=== PATIENT | female | born 1945 | race Caucasian/White ===

== ENCOUNTER 2018-02-25 11:44 | Emergency (ER) | payer MEDICARE ==
[~2018-02-25] VITALS: Ht 165.1 cm; Wt 55.0 kg
[2018-02-25 12:24] VITALS: BP 125/59; PULSE 65; RESP 15; TEMP 97
[2018-02-25 12:42] LABS: AUTOMATED NEUTROPHIL # 6.9 TH/MM3 (1.8-7.7); BASOPHIL % 0.2 % (0.0-2.0); EOSINOPHIL % 0.1 % (0.0-4.0); HEMATOCRIT 34.6 % (35.0-46.0); HEMOGLOBIN 11.8 GM/DL (11.6-15.3); LYMPH % 6.7 % (9.0-44.0); LYMPHOCYTE # 0.5 TH/MM3 (1.0-4.8); MEAN CELL VOLUME 89.8 FL (80.0-100.0); MEAN CORPUSCULAR HEMOGLOBIN 30.5 PG (27.0-34.0); MEAN CORPUSCULAR HGB CONC 33.9 % (32.0-36.0); MEAN PLATELET VOLUME 8.2 FL (7.0-11.0); MONO % 1.5 % (0.0-8.0); MONOCYTE # 0.1 TH/MM3 (0-0.9); NEUT % 91.5 % (16.0-70.0); PLATELET COUNT 333 TH/MM3 (150-450); RED BLOOD COUNT 3.86 MIL/MM3 (4.00-5.30); WHITE BLOOD COUNT 7.5 TH/MM3 (4.0-11.0)
[2018-02-25] MEDS ORDERED: BIOTCAP PO (12:44)
[2018-02-25] MEDS ORDERED: ALEN1TAB48 PO (12:44)
[2018-02-25] MEDS ORDERED: CYAN1TAB24 (12:44)
[2018-02-25] MEDS ORDERED: VERA120T3 PO (12:44)
[2018-02-25] MEDS ORDERED: LORA0.5T PO (12:44)
[2018-02-25] MEDS ORDERED: CENTCHW4 CHEW (12:44)
[2018-02-25] MEDS ORDERED: FISHCAP4 PO (12:44)
[2018-02-25] MEDS ORDERED: ASPI81CH6 CHEW (12:44)
[2018-02-25] MEDS ORDERED: C (12:44)
[2018-02-25] MEDS ORDERED: MAG-TAB PO (12:44)
[2018-02-25] MEDS ORDERED: VITACAP7 PO (12:44)
[2018-02-25] MEDS ORDERED: SYSTSOL15 EACH EYE (12:44)
[2018-02-25] MEDS ORDERED: D 101000 (12:44)
[2018-02-25 12:56] LABS: ALBUMIN 3.6 GM/DL (3.4-5.0); AST (GOT) 20 U/L (15-37); BICARBONATE 23.7 MEQ/L (21.0-32.0); BLOOD UREA NITROGEN 6 MG/DL (7-18); CALCIUM 7.8 MG/DL (8.5-10.1); CHLORIDE 103 MEQ/L (98-107); CREATININE 0.54 MG/DL (0.50-1.00); GLOMERULAR FILTRATION RATE 111 ML/MIN (>89); GLUCOSE,RANDOM 114 MG/DL (74-106); SODIUM (NA) 136 MEQ/L (136-145)
[2018-02-25 12:57] LABS: ALT (GPT) 23 U/L (10-53)
[2018-02-25 12:59] LABS: ALKALINE PHOSPHATASE 71 U/L (45-117); TOTAL BILIRUBIN ADULT 0.3 MG/DL (0.2-1.0); TOTAL PROTEIN 7.1 GM/DL (6.4-8.2)
--- NOTE | 2018-02-25 13:13 | PD ---
HPI Chief Complaint: GI Complaint Time Seen by Provider: 12:55 Travel History International Travel<30 days: No Contact w/Intl Traveler<30days: No Traveled to known affect area: No History of Present Illness HPI 72-year-old female with PMH of HTN presents to the ED via EMS for evaluation from her endoscopist office. Patient states that she is experienced dizziness and unsteadiness since waking from anesthesia after colonoscopy today. She also had a few bouts of emesis. She states that her symptoms are improving in the ED. She denies headache, dizziness, chest pain, palpitations, shortness of breath, abdominal pain, nausea, vomiting, dysuria. Patient states that she lives alone. She states that she has had a history of problems coming out of anesthesia in the past but did not think to mention this prior to her procedure today. PFSH Past Medical History Atrial Fibrillation: Yes Anxiety: Yes Cancer: Yes (BASAL CELL) Hypertension: Yes Past Surgical History Eye Surgery: Yes (CATARACTS) Hysterectomy: Yes Tonsillectomy: Yes (AND ADENOIDS X2) Social History Alcohol Use: No Tobacco Use: No Substance Use: No Allergies-Medications (Allergen,Severity, Reaction): Coded Allergies: Penicillins (Verified Allergy, Unknown, 02/25/18) prochlorperazine (Verified Allergy, Unknown, 02/25/18) Reported Meds & Prescriptions Reported Meds & Active Scripts Active Reported [C] B12 (Cyanocobalamin) 1,000 Mcg Tab Verapamil (Verapamil HCl) 120 Mg Tab 120 Mg PO DAILY Systane Balance [employer] Opth Drops (Propylene Glycol Opth Drops) 0.6% Soln 1 Drop EACH EYE PRN PRN Lorazepam 0.5 Mg Tab 0.5 Mg PO DAILY PRN Fish Oil + D3 (Fish Oil-Cholecalciferol) 1,200-1,000 Mg-Unit Cap 1 Cap PO DAILY Aspirin Low Dose (Aspirin) 81 Mg Chew 81 Mg CHEW DAILY D 1000 (Cholecalciferol) 1,000 Unit Cap Mag-Delay (Magnesium Chloride) 70 Mg Magnesium Tab 64 Mg PO DAILY Centrum (Multiple Vitamins W/ Minerals) 1 Chew 1 Tab CHEW DAILY Biotin 5 Mg Cap 5,000 Mg PO B Complex (B-Complex Vitamins) 1 Cap 1 Cap PO DAILY Alendronate (Alendronate Sodium) 70 Mg Tab 70 Mg PO Q7D Review of Systems Except as stated in HPI: all other systems reviewed are Neg Physical Exam Narrative GENERAL: Pleasant, alert, oriented white female no acute distress. SKIN: Focused skin assessment warm/dry. HEAD: Atraumatic. Normocephalic. EYES: Pupils equal and round. No scleral icterus. No injection or drainage. ENT: No nasal bleeding or discharge. Mucous membranes pink and moist. NECK: Trachea midline. No JVD. CARDIOVASCULAR: Regular rate and rhythm. No murmur appreciated. RESPIRATORY: No accessory muscle use. Clear to auscultation. Breath sounds equal bilaterally. GASTROINTESTINAL: Abdomen soft, non-tender, nondistended. Hepatic and splenic margins not palpable. Active bowel sounds. MUSCULOSKELETAL: No obvious deformities. No clubbing. No cyanosis. No edema. NEUROLOGICAL: Awake and alert. No obvious cranial nerve deficits. Motor grossly within normal limits. Normal speech. PSYCHIATRIC: Appropriate mood and affect; insight and judgment normal. Data Data Last Documented VS Vital Signs Date Time Temp Pulse Resp B/P (MAP) Pulse Ox O2 Delivery O2 Flow Rate FiO2 02/25/18 16:10 70 16 118/72 (87) 98 02/25/18 12:24 97.0 Orders Orders Complete Blood Count With Diff (02/25/18 11:49) Comprehensive Metabolic Panel (02/25/18 11:49) Urinalysis - C+S If Indicated (02/25/18 11:49) Iv Access Insert/Monitor (02/25/18 11:49) Oxygen Administration (02/25/18 11:49) Oximetry (02/25/18 11:49) Lipase (02/25/18 11:49) Sodium Chlor 0.9% 1000 Ml Inj (Ns 1000 M (02/25/18 13:15) Potassium Chloride (Kcl) (02/25/18 13:15) Calcium Carbonate Chew (Tums Chew) (02/25/18 13:30) Ed Discharge Order (02/25/18 13:58) Labs Laboratory Tests Test 02/25/18 12:10 02/25/18 13:18 White Blood Count 7.5 TH/MM3 Red Blood Count 3.86 MIL/MM3 Hemoglobin 11.8 GM/DL Hematocrit 34.6 % Mean Corpuscular Volume 89.8 FL Mean Corpuscular Hemoglobin 30.5 PG Mean Corpuscular Hemoglobin Concent 33.9 % Red Cell Distribution Width 14.0 % Platelet Count 333 TH/MM3 Mean Platelet Volume 8.2 FL Neutrophils (%) (Auto) 91.5 % Lymphocytes (%) (Auto) 6.7 % Monocytes (%) (Auto) 1.5 % Eosinophils (%) (Auto) 0.1 % Basophils (%) (Auto) 0.2 % Neutrophils # (Auto) 6.9 TH/MM3 Lymphocytes # (Auto) 0.5 TH/MM3 Monocytes # (Auto) 0.1 TH/MM3 Eosinophils # (Auto) 0.0 TH/MM3 Basophils # (Auto) 0.0 TH/MM3 CBC Comment DIFF FINAL Differential Comment Blood Urea Nitrogen 6 MG/DL Creatinine 0.54 MG/DL Random Glucose 114 MG/DL Total Protein 7.1 GM/DL Albumin 3.6 GM/DL Calcium Level 7.8 MG/DL Alkaline Phosphatase 71 U/L Aspartate Amino Transf (AST/SGOT) 20 U/L Alanine Aminotransferase (ALT/SGPT) 23 U/L Total Bilirubin 0.3 MG/DL Sodium Level 136 MEQ/L Potassium Level 3.2 MEQ/L Chloride Level 103 MEQ/L Carbon Dioxide Level 23.7 MEQ/L Anion Gap 9 MEQ/L Estimat Glomerular Filtration Rate 111 ML/MIN Lipase 107 U/L Urine Color LIGHT-YELLOW Urine Turbidity CLEAR Urine pH 7.0 Urine Specific [place] 1.010 Urine Protein NEG mg/dL Urine Glucose (UA) NEG mg/dL Urine Ketones 40 mg/dL Urine Occult Blood NEG Urine Nitrite NEG Urine Bilirubin NEG Urine Urobilinogen LESS THAN 2.0 MG/DL Urine Leukocyte Esterase NEG Urine RBC LESS THAN 1 /hpf Urine WBC 1 /hpf Urine Squamous Epithelial Cells <1 /hpf Urine Hyaline Casts 2 /lpf Urine Mucus FEW /lpf Microscopic Urinalysis Comment CULT NOT INDICATED MDM Medical Decision Making Medical Screen Exam Complete: Yes Emergency Medical Condition: Yes Differential Diagnosis dehydration versus metabolic derangement versus medication reaction versus other Narrative Course 72-year-old female with PMH of HTN presents to the ED via EMS for evaluation from her endoscopist office. Patient states that she is experienced dizziness and unsteadiness since waking from anesthesia after colonoscopy today. She also had a few bouts of emesis. Symptoms are improving in the ED. vitals reviewed. No focal neuro deficits on exam. CBC: No leukocytosis or anemia. CMP: BUN 6, creatinine 0.54. Potassium 3.2. Calcium 7.8. UA: No culture indicated. Patient was able to ambulate to the bathroom, no dizziness reported. She was able to tolerate p.o. replacement of potassium and calcium. She is able to tolerate crackers and amarjit amy. She is able to walk steadily around the emergency room. I spoke with Dr. Bentley. From his standpoint he thinks the patient is safe for discharge. Patient states that she is feeling well. She is instructed to return to normal, gentle activity as tolerated, follow-up with Dr. Bentley, return for worsening symptoms. She indicated understanding of instructions. She is agreeable to the care plan. The patient is stable and discharged home. Diagnosis Primary Impression: Nausea and vomiting after administration of anesthetic agent Referrals: Rocael Bentley MD Primary Care Physician Additional Instructions: Rest, hydrate. Eat a bland diet for the next few days and gradually reintroduce new foods. Follow-up with Dr. Bentley as discussed. Return to the ED for worsening symptoms or any urgent or emergent medical condition. Disposition: 01 DISCHARGE HOME Condition: Stable Anitra Mullen Feb 25, 2018 13:12
[2018-02-25] MEDS ORDERED: SODIUM CHLOR 0.9% 1000 ML INJ 1,000 ML IV ONE (13:15)
[2018-02-25] MEDS ORDERED: POTASSIUM CHLORIDE 20 MEQ CONTROLLED RELEASE TAB PO ONE (13:15)
[2018-02-25] MEDS ORDERED: CALCIUM CARBONATE 500 MG CHEWABLE TAB CHEW ONE (13:30)
[2018-02-25 13:49] LABS: BILIRUBIN, URINE NEG (NEG); BLOOD, URINE NEG (NEG); GLUCOSE,URINE NEG (NEG); HYALINE CAST, URINE 2 /lpf (RARE); KETONE, URINE 40 mg/dL (NEG); MUCUS URINE FEW /lpf (OCC); NITRITE,URINE NEG (NEG); SQUAMOUS EPITHELIAL CELL URINE <1 /hpf (0-5); URINE COLOR LIGHT-YELLOW (YELLW/STRAW); URINE LEUKOCYTE ESTERASE NEG (NEG)
[2018-02-25 16:10] VITALS: BP 118/72
== END 2018-02-25 16:47 | disposition home or self-care (01) ==
LOC: NEDAMB 11:44
DX: R11.2 Nausea with vomiting, unspecified (principal); R42 Dizziness and giddiness; I10 Essential (primary) hypertension
CPT/HCPCS: 80053; 81001; 83690; 85025; 99284; J7030

== ENCOUNTER 2018-03-26 11:32 | Inpatient (IN) ==
[2018-03-26] MEDS ORDERED: Neostigmine Inj 5 MG/5 ML Syringe IV.PUSH ONE (12:00)
[2018-03-26] MEDS ORDERED: Lidocaine PF 1% Inj 5 ML Syringe INFILTRATN ONE (12:00)
[2018-03-26] MEDS ORDERED: Normosol-R pH 7.4 Inj 1,000 ML IV.CONT ONE (12:00)
[2018-03-26] MEDS ORDERED: Glycopyrrolate Inj 1 MG/5 ML Syringe IV.PUSH ONE (12:00)
[2018-03-26] MEDS ORDERED: Chlorhexidine Gluconate 2% 1 Pack (2 Cloths) TOPICAL SCH (12:30)
[2018-03-26] MEDS ORDERED: Metoprolol Tartrate 25 MG Tablet PO SCH (12:30)
[2018-03-26] MEDS ORDERED: Sodium Chlor 0.9% Inj 500 ML IV.SIG SCH (13:00)
--- NOTE | 2018-03-26 13:29 | P.HPUP ---
The Pre-Admit History and Physical Examination regarding the above named patient was reviewed (including, but not limited to, vital signs, heart, lungs, co-morbid conditions), and upon re-examination it is noted that: the patient's condition has not significantly changed since the last examination.
[2018-03-26] MEDS ORDERED: Bupivacaine PF 0.5% Inj 30 ML Vial ONE ×3 (15:01→15:02)
--- NOTE | 2018-03-26 15:02 | P.OP ---
- Preoperative Diagnosis (1) Diverticula of colon - Postoperative Diagnosis (1) Diverticula of colon Date of procedure: 03/26/18 Procedure: Urologic surgery procedures performed: Cystoscopy and placement of bilateral ureteral catheters. Implants: Bilateral ureteral catheters. Anesthesia: GETA Surgeon: Pete Walker MD Operation and Findings: Indication for urologic procedures: Consulted intraoperatively to place bilateral ureteral catheters to aid in visualization of this patient's ureters during her colorectal procedure. Urologic surgery procedures in detail: Concurrent with the colorectal surgeons, I proceeded with cystoscopy and placement of bilateral ureteral catheters as follows: Initially cystoscopic evaluation was performed utilizing the rigid cystoscope with the 22 [place] sheath and the 30 lens. Both right and left ureteral orifices were in correct anatomic position effluxing clear yellow urine. I then proceeded at passing a sensor 0.035 wire up the patient's left ureter. A 6 [place] open-ended ureteral catheter was then advanced just under 20 cm in a cephalad direction before small amount of resistance was met. The colorectal surgeons inform me that they could see the ureteral stent and there was a looping area noted of the ureter. I withdrew the catheter approximately 3 cm and the colorectal surgeons inform me that it was unnecessary to further advanced the ureteral catheter on the left side. I then proceeded with withdrawing the sensor wire and reintroducing it through secondary site via the cystoscope. In similar fashion the contralateral side was accomplished. I was able to advance the right catheter 25 cm cephalad direction without any problems. The guidewire cystoscope was then withdrawn and a 16 [place] 10 cc Roque catheter was placed. Both ureteral catheters were anchored to the Roque via a connector and all catheters placed to gravity drainage. This completes the urologic surgery portion of combined procedures on this patient.
[2018-03-26] MEDS ORDERED: Potassium Chlor 40 mEq Premix 40 MEQ/100 ML PIGGYBACK IV.SIG PRN (16:12)
[2018-03-26] MEDS ORDERED: Bupivacaine PF 0.5% Inj 30 ML Vial NERV BLOCK PRN (16:12)
[2018-03-26] MEDS ORDERED: Potassium Chlor 20 mEq Premix 20 MEQ/100 ML PIGGYBACK IV.SIG PRN (16:12)
[2018-03-26] MEDS ORDERED: fentaNYL Citrate Inj 100 MCG/2 ML Ampul ONE (16:33)
[2018-03-26] MEDS ORDERED: Morphine Inj 30 MG/30 ML PCA.VIAL PCA ONE (17:16)
[2018-03-26] MEDS ORDERED: *morphine SULFATE 4 MG/ML PERIprocedure ONLY ONE ×2 (17:39→18:00)
[2018-03-26] MEDS: Morphine Inj 30 MG/30 ML PCA.VIAL PCA PRN (17:55)
[2018-03-26] MEDS: KCL 20 mEq/D5W/NaCl 0.9% Inj 1,000 ML IV.CONT SCH (17:55)
[2018-03-26] MEDS ORDERED: *morphine SULFATE 10 MG/ML PERIprocedure ONLY ONE (18:13)
[2018-03-26] MEDS ORDERED: Naloxone Inj 0.4 MG/ML Vial IV.PUSH PRN (18:25)
[2018-03-26] MEDS: LORazepam 0.5 MG Tablet PO PRN (23:59)
[2018-03-27] MEDS: KCL 20 mEq/D5W/NaCl 0.9% Inj 1,000 ML IV.CONT SCH ×4 (01:00→15:35)
[2018-03-27 08:12] LABS: Baso % (Auto) 0.1 % (0.0-2.0); Hematocrit 32.7 % (35.0-46.0); Hemoglobin 10.8 gm/dL (11.6-15.3); Lymph # (Auto) 0.4 th/mm3 (1.0-4.8); Lymph % (Auto) 2.3 % (9.0-44.0); Mean Corpuscular HGB Conc 33.2 % (32.0-36.0); Mean Corpuscular Hemoglobin 30.5 pg (27.0-34.0); Mean Corpuscular Volume 91.9 fL (80.0-100.0); Mean Platelet Volume 8.5 fL (7.0-11.0); Mono # (Auto) 0.8 th/mm3 (0.0-0.9); Mono % (Auto) 4.8 % (0.0-8.0); Neut % (Auto) 92.8 % (16.0-70.0); Platelet Count 265 th/mm3 (150-450); Red Blood Count 3.56 mil/mm3 (4.00-5.30); Red Cell Distribution Width 14.4 % (11.6-17.2); White Blood Count 16.1 th/mm3 (4.0-11.0)
[2018-03-27 08:47] LABS: Calcium 6.8 mg/dL (8.5-10.1); Carbon Dioxide 21.3 meq/L (21.0-32.0); Potassium 4.1 meq/L (3.5-5.1)
[2018-03-27 09:04] LABS: Total Protein 6.1 g/dL (6.4-8.2)
[2018-03-27] MEDS: Ketorolac Inj 30 MG/ML (IVP) Vial IV.PUSH PRN ×2 (09:06→17:14)
[2018-03-27] MEDS: Pantoprazole Inj 40 MG Vial IV.PUSH SCH (09:06)
--- NOTE | 2018-03-27 10:18 | P.PNCS ---
Subjective Interval history: C/R Surg POD #1 afebrile, VSS UO good 1 stent dc'd JESSIE serous Objective Vital Signs/Intake & Output: Vital Signs Intake & Output Result Diagrams: 03/27/18 07:15 03/27/18 07:15 Laboratory Results: Laboratory Results - last 24 hr Medications: Active Medications Objective Remarks: PE alert Abd - soft, wound dry, min tympany Assessment and Plan - Plan Imp: stable post-op OOB decr IVF tx to floor
[2018-03-27] MEDS: Dextrose 5%/NaCl 0.9% Inj 1,000 ML IV.SIG SCH (12:23)
[2018-03-27] MEDS: Morphine Inj 30 MG/30 ML PCA.VIAL PCA PRN (18:37)
[2018-03-28] MEDS: KCL 20 mEq/D5W/NaCl 0.9% Inj 1,000 ML IV.CONT SCH ×2 (05:37→16:14)
[2018-03-28] MEDS: Dextrose 5%/NaCl 0.9% Inj 1,000 ML IV.SIG SCH ×2 (07:26→07:27)
[2018-03-28 08:27] LABS: Baso % (Auto) 0.1 % (0.0-2.0); Hematocrit 33.2 % (35.0-46.0); Hemoglobin 11.1 gm/dL (11.6-15.3); Lymph # (Auto) 1.3 th/mm3 (1.0-4.8); Lymph % (Auto) 8.8 % (9.0-44.0); Mean Corpuscular HGB Conc 33.6 % (32.0-36.0); Mean Corpuscular Hemoglobin 30.8 pg (27.0-34.0); Mean Corpuscular Volume 91.6 fL (80.0-100.0); Mean Platelet Volume 8.9 fL (7.0-11.0); Mono # (Auto) 0.8 th/mm3 (0.0-0.9); Mono % (Auto) 5.6 % (0.0-8.0); Neut # (Auto) 12.2 th/mm3 (1.8-7.7); Neut % (Auto) 85.5 % (16.0-70.0); Platelet Count 266 th/mm3 (150-450); Red Blood Count 3.62 mil/mm3 (4.00-5.30); Red Cell Distribution Width 14.4 % (11.6-17.2); White Blood Count 14.2 th/mm3 (4.0-11.0)
[2018-03-28 08:51] LABS: Anion Gap 11 meq/L (5-15); Blood Urea Nitrogen 3 mg/dL (7-18); Calcium 7.5 mg/dL (8.5-10.1); Carbon Dioxide 18.3 meq/L (21.0-32.0); Chloride 112 meq/L (98-107); Glomerular Filtration Rate Greater Than 89 mL/min (>89); Glucose,Random 100 mg/dL (74-106); Potassium 3.8 meq/L (3.5-5.1); Sodium 141 meq/L (136-145)
[2018-03-28] MEDS: Pantoprazole Inj 40 MG Vial IV.PUSH SCH (09:19)
--- NOTE | 2018-03-28 21:52 | P.PNCS ---
Subjective Interval history: C/R Surg POD #2 afebrile, VSS UO good stents dc'd +stools Objective Vital Signs/Intake & Output: Vital Signs Intake & Output Result Diagrams: 03/28/18 05:59 03/28/18 05:59 Laboratory Results: Laboratory Results - last 24 hr Medications: Active Medications Objective Remarks: PE alert Abd - soft, flat, wound dry Assessment and Plan - Plan Imp: OOB decr IVF adv diet
[2018-03-29] MEDS: LORazepam 0.5 MG Tablet PO PRN (00:48)
[2018-03-29] MEDS: Pantoprazole Inj 40 MG Vial IV.PUSH SCH (09:55)
--- NOTE | 2018-03-29 23:30 | P.PNCS ---
Subjective Interval history: C/R Surg POD #3 afebrile, VSS UO good liq stool Objective Vital Signs/Intake & Output: Vital Signs Intake & Output Result Diagrams: 03/28/18 05:59 03/28/18 05:59 Medications: Active Medications Objective Remarks: PE alert Abd - soft, flat, wound dry Assessment and Plan - Plan Imp: OOB decr IVF adv diet dc sctot dc plans
[2018-03-30] MEDS: LORazepam 0.5 MG Tablet PO PRN ×2 (03:16→09:08)
[2018-03-30] MEDS: Pantoprazole Inj 40 MG Vial IV.PUSH SCH (09:09)
--- NOTE | 2018-03-30 10:27 | P.PNCS ---
Subjective Interval history: No N or V. Stooling. Weak. Just finished with PT Objective Vital Signs/Intake & Output: Vital Signs 03/29/18 12:00 03/29/18 16:00 03/29/18 20:00 Temperature 98.2 F 97.7 F 97.8 F Pulse Rate 124 H 124 H 77 Respiratory Rate 17 17 17 Blood Pressure 157/68 H 111/75 136/62 Pulse Oximetry 96 96 99 03/30/18 00:00 03/30/18 08:00 03/30/18 09:00 Temperature 97.4 F L 98.2 F Pulse Rate 76 125 H 78 Respiratory Rate 17 18 Blood Pressure 128/61 131/77 Pulse Oximetry 9 L 97 Intake & Output 03/29/18 03/30/18 03/30/18 18:59 06:59 18:59 Intake Total 650 / 650 240 / 240 Output Total 1350 / 1350 400 / 400 Balance -700 / -700 -160 / -160 Intake: Oral 650 / 650 240 / 240 Output: Urine 1350 / 1350 400 / 400 Other: # Bowel Movements 3 3 Result Diagrams: 03/28/18 05:59 03/28/18 05:59 Medications: Active Medications Alvimopan (Entereg) [address] [facility] Last Admin: 03/30/18 09:09 Dose: 12 mg Alvimopan (Entereg) 12 mg PO BID [facility] Stop: 04/02/18 09:01 Last Admin: 03/29/18 09:00 Dose: 12 mg Bupivacaine HCl (Marcaine Pf 0.5% Inj) 360 ml NERV BLOCK PRN PRN PRN Reason: for Post-Op pain control Enalaprilat (Vasotec Inj) 2.5 mg IV.PUSH Q6H PRN PRN Reason: SBP > 160 mmHg Potassium Chloride/Dextrose/Sod Cl (D5w/Ns + Kcl 20 Meq Inj) 1,000 mls @ 60 mls /hr IV.CONT .[id number] [facility] Last Admin: 03/28/18 16:14 Dose: 80 mls/hr Potassium Chloride (Kcl 20 Meq Premix Inj) 20 meq in 100 mls @ 50 mls/hr IV.SIG UNSCH PRN PRN Reason: for K+ level 3.0-3.5 Potassium Chloride (Kcl 40 Meq Premix Inj) 40 meq in 100 mls @ 25 mls/hr IV.SIG UNSCH PRN PRN Reason: for K= level < 3.0 Lorazepam (Ativan) 0.5 mg PO DAILY PRN PRN Reason: Anxiety Last Admin: 03/30/18 09:08 Dose: 0.5 mg Metoclopramide HCl (Reglan Inj) 10 mg IV.PUSH Q12H PRN; Protocol PRN Reason: NAUSEA OR VOMITING Naloxone HCl (Narcan Inj) 0.4 mg IV.PUSH PRN PRN PRN Reason: Resp rate < 10 Oxycodone/Acetaminophen (Percocet 5/325 Mg) 1 tab PO Q4H PRN PRN Reason: PAIN SCALE 1 TO 5 Oxycodone/Acetaminophen (Percocet 5/325 Mg) 2 tab PO Q4H PRN PRN Reason: PAIN SCALE 6 TO 10 Pantoprazole Sodium (Protonix Inj) 40 mg IV.PUSH DAILY [facility] Last Admin: 03/30/18 09:09 Dose: 40 mg Sodium Chloride (Ns Flush) 2 ml IV.FLUSH BID [facility] Last Admin: 03/29/18 09:56 Dose: 2 ml Sodium Chloride (Ns Flush) 2 ml IV.FLUSH PRN PRN PRN Reason: FLUSH AFTER USING IV ACCESS Last Admin: 03/27/18 20:34 Dose: 2 ml Tramadol HCl (Ultram) 50 mg PO Q8H PRN PRN Reason: PAIN SCALE 1 TO 5 OR COUGHING Last Admin: 03/29/18 23:04 Dose: 50 mg Verapamil HCl (Isoptin Sr) 120 mg PO DAILY [facility] Last Admin: 03/30/18 09:08 Dose: 120 mg Objective Remarks: VS-S Abd: flat,soft,wound clean Assessment and Plan - Plan Stable but weak. Wants to go to [place] post op.
[2018-03-31] MEDS: Pantoprazole Inj 40 MG Vial IV.PUSH SCH (08:28)
--- NOTE | 2018-03-31 11:16 | P.PNCS ---
Subjective Interval history: No N or V. BMs. Doesn't want D/C today. Not sure if she wants Rehab or home. Objective Vital Signs/Intake & Output: Vital Signs 03/30/18 12:00 03/30/18 16:00 03/30/18 20:00 Temperature 98.1 F 99.1 F 98.3 F Pulse Rate 99 H 81 85 Respiratory Rate 18 18 Blood Pressure 141/61 H 141/63 H 141/55 H Pulse Oximetry 100 97 98 03/31/18 00:00 03/31/18 01:00 03/31/18 08:00 Temperature 98.6 F 98.1 F Pulse Rate 80 122 H Respiratory Rate 18 Blood Pressure 138/67 135/67 Pulse Oximetry 98 98 Intake & Output 03/30/18 03/31/18 03/31/18 18:59 06:59 18:59 Intake Total 800 / 800 480 / 480 Output Total 950 / 950 500 / 500 Balance 790 / 790 -470 / -470 -500 / -500 Intake: Oral 800 / 800 480 / 480 Output: Urine 900 / 900 500 / 500 Wound Drainage 50 / 50 # 1 Abdomen 50 / 50 Other: Date of Last Bowel Movement 03/31/18 03/31/18 # Bowel Movements 1 1 Result Diagrams: 03/28/18 05:59 03/28/18 05:59 Medications: Active Medications Alvimopan (Entereg) 12 mg PO RISK [employer]PRES[employer] Last Admin: 03/31/18 08:28 Dose: 12 mg Alvimopan (Entereg) 12 mg PO BID [facility] Stop: 04/02/18 09:01 Last Admin: 03/31/18 08:28 Dose: 12 mg Bupivacaine HCl (Marcaine Pf 0.5% Inj) 360 ml NERV BLOCK PRN PRN PRN Reason: for Post-Op pain control Enalaprilat (Vasotec Inj) 2.5 mg IV.PUSH Q6H PRN PRN Reason: SBP > 160 mmHg Potassium Chloride (Kcl 20 Meq Premix Inj) 20 meq in 100 mls @ 50 mls/hr IV.SIG UNSCH PRN PRN Reason: for K+ level 3.0-3.5 Potassium Chloride (Kcl 40 Meq Premix Inj) 40 meq in 100 mls @ 25 mls/hr IV.SIG UNSCH PRN PRN Reason: for K= level < 3.0 Lorazepam (Ativan) 0.5 mg PO DAILY PRN PRN Reason: Anxiety Last Admin: 03/30/18 09:08 Dose: 0.5 mg Metoclopramide HCl (Reglan Inj) 10 mg IV.PUSH Q12H PRN; Protocol PRN Reason: NAUSEA OR VOMITING Naloxone HCl (Narcan Inj) 0.4 mg IV.PUSH PRN PRN PRN Reason: Resp rate < 10 Oxycodone/Acetaminophen (Percocet 5/325 Mg) 1 tab PO Q4H PRN PRN Reason: PAIN SCALE 1 TO 5 Oxycodone/Acetaminophen (Percocet 5/325 Mg) 2 tab PO Q4H PRN PRN Reason: PAIN SCALE 6 TO 10 Pantoprazole Sodium (Protonix Inj) 40 mg IV.PUSH DAILY [facility] Last Admin: 03/31/18 08:28 Dose: 40 mg Sodium Chloride (Ns Flush) 2 ml IV.FLUSH BID [facility] Last Admin: 03/31/18 08:28 Dose: 2 ml Sodium Chloride (Ns Flush) 2 ml IV.FLUSH PRN PRN PRN Reason: FLUSH AFTER USING IV ACCESS Last Admin: 03/27/18 20:34 Dose: 2 ml Tramadol HCl (Ultram) 50 mg PO Q8H PRN PRN Reason: PAIN SCALE 1 TO 5 OR COUGHING Last Admin: 03/29/18 23:04 Dose: 50 mg Verapamil HCl (Isoptin Sr) 120 mg PO DAILY [facility] Last Admin: 03/31/18 08:28 Dose: 120 mg Objective Remarks: VS-S Abd: soft.Flat.Wound clean Assessment and Plan - Plan Stable. Unsure re placement
[2018-04-01] MEDS: Pantoprazole Inj 40 MG Vial IV.PUSH SCH (08:30)
--- NOTE | 2018-04-01 17:01 | P.DCO ---
- Physical Therapy Order: Evaluate and treat, Improve ambulation, Strength and gait training - Home Health Nursing Order: Signs/symptoms of disease process, Wound care and dressing changes - Certification I have seen patient Nathalie Caceres on 04/01/18. My clinical findings support the need for the requested home health care services because: Limited mobility due to disease progression, Deconditioned with increased weakness, High risk of falls, Infection with risk of complications I certify that my clinical findings support that this patient is homebound because: Post-op weakness, Unsafe to leave home unassisted, Need for psychosocial assistance
--- NOTE | 2018-04-01 22:43 | P.PNCS ---
Subjective Interval history: C/R Surg POD afebrile, VSS UO good richard PO stools better Objective Objective Remarks: PE alert Abd - soft, flat, wound dry Assessment and Plan - Assessment (1) Colitis, acute Code(s): K52.9 - Noninfective gastroenteritis and colitis, unspecified Status : Acute (2) Diverticula of colon Code(s): K57.30 - Diverticulosis of large intestine without perforation or abscess without bleeding Status: Acute - Plan Imp: slowly getting stronger OOB diet adv DC to home with home health rto 1 week
--- NOTE | 2018-04-03 13:30 | MP ---
cc: Rocael Bentley MD DATE OF OPERATION: PREOPERATIVE DIAGNOSIS: Diverticular disease of the rectosigmoid with narrowing and obstruction. PROCEDURE PERFORMED: Exploratory laparotomy with proctosigmoidectomy and low pelvic anastomosis. POSTOPERATIVE DIAGNOSIS: Diverticular disease of the rectosigmoid with narrowing and obstruction. SURGEON: Rocael Bentley MD CROP ROLLER: Shubham Hoff MD PROCEDURE: The patient was placed in the supine position. After adequate general anesthesia, her legs were placed in the universal stirrups and supported appropriately. The abdomen and perineum were then prepped with Betadine solution and draped in the usual sterile fashion. With Dr. Hoff's assistance, the abdomen was opened through an infraumbilical transverse incision, dividing the rectus muscles with electrocautery. Exploration revealed an area of the rectosigmoid, which was very thickened and chronically inflamed. It was not really adherent to any surrounding structures. No acute inflammation was seen. The proximal colon was much more thin walled and normal in appearance. The small bowel was run from ligament of Treitz down to the ileocecal valve and felt to be normal. The liver and gallbladder were unremarkable. The stomach and duodenum were normal. The uterus and ovaries were appropriate for the patient's age. First, the sigmoid colon was mobilized medially by dividing along the white line of Toldt. The left ureteral stent was easily palpable and preserved. Dissection then proceeded up the left gutter, taking down attachments to the retroperitoneum, freeing up the colon towards the splenic flexure, entering the lesser sac. The right retroperitoneal space was then opened and the bowel dissected off the presacral fascia, preserving the presacral nerves. Pedicle for the superior hemorrhoidal vessel was identified and divided between Kellys obtaining hemostasis with Vicryl ties. Dissection then proceeded down elevating the rectosigmoid off the presacral fascia to the pelvic floor. At a point in the proximal rectum, the bowel appeared to get softer and more normal and pliable, at which point the mesorectum was taken using electrocautery and Vicryl ties for hemostasis. The bowel was then divided between a pursestring suture device and a Gasper clamp. The bowel was then sized to reach the rectal pouch without tension and with good blood supply, leaving the left colic vessels. At the appropriate point, the marginal artery was taken and the bowel divided again between a pursestring suture device and a Gasper clamp. End of the bowel was sized to accept a 29 mm EEA stapling anvil and this was secured with the pursestring suture. Dr. Hoff inserted the EEA stapling instrument transanally and under direct vision was brought up to the end of the rectal pouch. The pursestring suture tied. The stapler was then reassembled. The bowel aligned properly. The stapler was closed and fired. Upon withdrawal 2 complete donuts of tissue was seen. Gentle insufflation did confirm an airtight anastomosis. The abdomen was then irrigated copiously with normal saline. Adequate hemostasis achieved. Margarito-Wise drain placed in the presacral space and brought out through a stab wound in the right lower quadrant and secured to the skin with a nylon suture. A transverse incision was then closed anatomically in 2 layers using #1 PDS sutures to reapproximate the respective fascial layers. On-Q catheters were placed into the rectus sheaths on both sides, brought up through subcutaneous tunnels above the transverse incision. Subcutaneous tissues irrigated copiously and the skin closed with a running subcuticular Vicryl suture. Wound area washed with normal saline and dried, sterile dressing of Telfa and gauze applied. The patient tolerated the procedure quite well and was brought to the recovery room in stable condition. The sponge and needle counts were correct at the end of the procedure. MD DAVIAN Hall/TL , 01:06 PM , 01:28 PM
--- NOTE | 2018-04-18 06:30 | MD ---
cc: Rocael Bentley MD DATE OF DISCHARGE: 04/01/2018 ADMITTING DIAGNOSIS: Abnormal sigmoid with diverticular disease and stricture. PROCEDURES: 1. On 03/26/2018, cystoscopy and placement of bilateral ureteral stents. 2. On 03/26/2018, exploratory laparotomy, proctosigmoidectomy, and low pelvic anastomosis. 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 HISTORY OF PRESENT ILLNESS: Ms. Caceres is a 71-year-old female in relatively good health, having more constipation recently and decreased caliber of stools. The patient tried MiraLax with little relief. Quite a bit of mucus discharge and some bright red blood on the stool and on the paper, gets quite a bit of cramping especially before bowel movement. Some rectal pressure at times, no prolapse. Denies nausea or vomiting. No abdominal distention. Appetite has been fair. Weight is down about 5 pounds on 09/27/2017. Outpatient colonoscopy revealed narrowing and stricturing of the rectosigmoid. CT scanning did show the possibility of a mass or thickening of the rectosigmoid of unclear etiology. The patient continued to have fairly significant obstructive symptoms and was admitted at this time for definitive surgical resection. Please see admitting history and physical for complete past medical and surgical history. PERTINENT PHYSICAL: Very pleasant older female in no acute distress. Abdomen was definitely rounded and full, little doughy, not really distended. No rebound or guarding any masses noted. Anal inspection revealed benign canal. Digital exam reveals good to fair tone with pelvic mass and thickening in the upper rectum. No blood on the finger. HOSPITAL COURSE: After admission, the patient was taken to the operating room on 03/26/2018, at which point she had bilateral ureteral stents and the undersigned performed an exploratory laparotomy with proctosigmoidectomy and low pelvic anastomosis. She did have significant thickening and narrowing of the rectosigmoid with some diverticulosis noted. The bowel proximal and distal to the inflammatory area appeared to be pretty normal. The patient tolerated the procedure quite well. Initially, she was stabilized in the progressive care unit. Her GI tract function was slow to return and her diet was advanced accordingly. She was able to have some bowel movements and we weaned off her IV fluids. She also required quite a bit of physical therapy for muscle strengthening and help with ambulation. The patient did continue to improve to the point where she could be considered for discharge home on 04/01/2018. 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 DISCHARGE PLANS: The patient was discharged eating a regular diet. She was to continue ambulating daily, avoiding any heavy lifting or straining. All preop medications were to be resumed. The patient will be seen in the office in 1 weeks' time for routine followup for any problems prior to the scheduled office visit and she was encouraged to call for more urgent attention. MD DAVIAN Hall/[email or web address]/[email or web address] , 11:12 PM , 11:22 PM
== END 2018-04-01 18:30 | disposition home health service (06) ==
LOC: HSDI 11:32 → HCIS 21:38 → N07 03-28 01:35
PROVIDERS: ADMIT Colon & Rectal Surgery; ATTEND Colon & Rectal Surgery